=== PATIENT | male | born 1970 | race Caucasian/White ===

== ENCOUNTER 2017-08-03 13:49 | Observation (INO) | payer MEDICAID ==
[2017-08-03] MEDS ORDERED: Sodium Chloride 0.9% 10 ML Syringe FLUSH PRN (14:03)
--- NOTE | 2017-08-03 14:17 | EDM.PDOC ---
ED HPI GENERAL MEDICAL PROBLEM - General Chief Complaint: General Stated Complaint: WEAK,NOT FEELING WELL Time Seen by Provider: 08/03/17 13:49 Source of Information: Reports: Patient History Limitations: Reports: No Limitations - History of Present Illness INITIAL COMMENTS - FREE TEXT/NARRATIVE: Pt. states that he has been experiencing dyspnea, lightheadedness, weakness, and RUQ abdominal pain for "a couple of days". Pt. states that he has not had any significant cough. He states that his urine in noted to be quite concentrated. He denies any N/V/D. States that he has been somewhat chilled. He denies any sore throat or rhinorrhea. No skin rashes or erythema. He states that he feels similar to how he felt while having pneumonia several years ago. Onset: Other (several days) Headache Pain Score (Numeric/FACES): 4 - Related Data Allergies Allergy/AdvReac Type Severity Reaction Status Date / Time No Known Allergies Allergy Verified 08/03/17 14:13 Home Meds: Home Meds FLUoxetine [PROzac] 40 mg PO DAILY 08/03/17 [History] Lisinopril [Lisinopril] 10 mg PO DAILY 08/03/17 [History] Pramipexole [Mirapex] 0.125 mg PO BEDTIME 08/03/17 [History] Past Medical History Gastrointestinal History: Reports: Other (See Below) (gastric bypass) ED ROS GENERAL - Review of Systems Review Of Systems: See Below Constitutional: Reports: Fever, Chills, Weakness, Fatigue HEENT: Reports: No Symptoms Respiratory: Reports: Shortness of Breath Cardiovascular: Reports: Dyspnea on Exertion, Orthopnea, PND, Other (peripheral edema) Endocrine: Reports: Other GI/Abdominal: Reports: Abdominal Pain (RUQ) : Reports: Other (concentrated urine) Musculoskeletal: Reports: No Symptoms Skin: Reports: Dryness Neurological: Reports: No Symptoms Psychiatric: Reports: No Symptoms Hematologic/Lymphatic: Reports: No Symptoms Immunologic: Reports: No Symptoms ED EXAM, GENERAL - Physical Exam Exam: See Below Exam Limited By: No Limitations General Appearance: Alert, WD/WN, Mild Distress, Obese Eye Exam: Bilateral Eye: EOMI, Normal Inspection, PERRL Ears: Normal External Exam Nose: Normal Inspection, Normal Mucosa, No Blood Throat/Mouth: Normal Inspection, Normal Lips, Normal Teeth, Normal Gums, Normal Oropharynx, No Airway Compromise Head: Atraumatic, Normocephalic Neck: Normal Inspection, Supple, Non-Tender Respiratory/Chest: No Respiratory Distress, No Accessory Muscle Use, Decreased Breath Sounds Cardiovascular: Normal Peripheral Pulses, Regular Rate, Rhythm, No JVD, No Murmur Peripheral Pulses: 2+: Radial (L), Radial (R) GI/Abdominal: Normal Bowel Sounds, Soft, Non-Tender Back Exam: Normal Inspection Course - Vital Signs Last Recorded V/S: Last Vital Signs Temp 37.9 C 08/03/17 17:27 Pulse 97 08/03/17 17:27 Resp 24 H 08/03/17 17:27 BP 157/88 H 08/03/17 17:27 Pulse Ox 95 08/03/17 17:27 - Orders/Labs/Meds Orders: Active Orders 24 hr Category Date Time Status EKG Documentation Completion [RC] STAT Care 08/03/17 14:04 Ordered Chest 2V [CR] Stat Exams 08/03/17 14:04 Taken CULTURE BLOOD [BC] Stat Lab 08/03/17 14:31 Received CULTURE BLOOD [BC] Stat Lab 08/03/17 14:37 Received Sodium Chloride 0.9% [Saline Flush] Med 08/03/17 14:03 Active 10 ml FLUSH ASDIRECTED PRN Blood Culture x2 Reflex Set [OM.PC] Stat Oth 08/03/17 14:05 Ordered Peripheral IV Insertion Adult [OM.PC] Routine Oth 08/03/17 14:05 Ordered Medication Orders Ceftriaxone Sodium (Rocephin) 2 gm IVPUSH DAILY@1500 [facility] Enoxaparin Sodium (Lovenox) 40 mg SUBCUT Q12HR [facility] Fluoxetine HCl (Prozac) 40 mg PO DAILY [facility] Azithromycin 500 mg/ Sodium (Chloride) 250 mls @ 250 mls/hr IV DAILY@1500 [facility] Potassium Chloride/Sodium Chloride (1/2 Ns With 20 Meq Kcl) 1,000 mls @ 150 mls /hr IV ASDIRECTED [facility] Sodium Chloride (Normal Saline) 1,000 mls @ 500 mls/hr IV ASDIRECTED [facility] Stop: 08/03/17 22:44 Lisinopril (Prinivil) 10 mg PO DAILY [facility] Ropinirole HCl (Requip) 0.25 mg PO BEDTIME [facility] Sodium Chloride (Saline Flush) 10 ml FLUSH ASDIRECTED PRN PRN Reason: Keep Vein Open Labs: Laboratory Tests 08/03/17 08/03/17 08/03/17 Range/Units 14:25 14:31 14:31 WBC 15.2 H (4.0-10.0) x10^3/uL RBC 4.95 (4.5-6.0) x10^6/uL Hgb 11.2 L (14.0-18.0) g/dL Hct 36.1 L (40.0-52.0) % MCV 72.9 L (78.0-93.0) fL MCH 22.6 L (26.0-32.0) pg MCHC 31.0 L (32.0-36.0) g/dL RDW Coeff of Merary 17.5 H (10.0-15.0) % Plt Count 242 (130-400) x10^3/uL Add Manual Diff Yes Neutrophils % (Manual) 77 (50-80) % Band Neutrophils % 18 H (0-6) % Lymphocytes % (Manual) 2 L (25-50) % Monocytes % (Manual) 1 L (2-11) % Metamyelocytes % 2 H (0) % Toxic Granulation 2+ moderate H Platelet Estimate Adequate Polychromasia Rare Poikilocytosis 1+ slight H Anisocytosis 3+ marked H Microcytosis 1+ slight H Spherocytes 1+ slight H Ovalocytes 2+ moderate H Sanjeev Cells 1+ slight H Acanthocytes (Spur) Rare Rouleaux 1+ slight H PT 11.0 (9.8-11.8) SEC INR 1.0 L (2.0-3.5) D-Dimer, Quantitative 4.71 H (<=0.58) mg/LFEU Sodium (136-145) mmol/L Potassium (3.5-5.1) mmol/L Chloride (98-107) mmol/L Carbon Dioxide (21-32) mmol/L BUN (7-18) mg/dL Creatinine (0.70-1.30) mg/dL Est Cr Clr Drug Dosing mL/min Estimated GFR (MDRD) Glucose (74-106) mg/dL Lactic Acid (0.4-2.0) mmol/L Calcium (8.5-10.1) mg/dL Corrected Calcium (8.5-10.1) mg/dL Phosphorus (2.6-4.7) mg/dL Magnesium (1.8-2.4) mg/dL Total Bilirubin (0.2-1.0) mg/dL AST (15-37) U/L ALT (16-63) U/L Alkaline Phosphatase (46-116) U/L Creatine Kinase (39-308) U/L Creatine Kinase Index (0.0-4.0) % CK-MB (CK-2) (0.0-3.6) ng/mL Troponin I (<=0.056) ng/mL C-Reactive Protein (<=0.9) mg/dL NT-Pro-B Natriuret Pep (<=125) pg/mL Total Protein (6.4-8.2) g/dL Albumin (3.4-5.0) g/dL Globulin Albumin/Globulin Ratio Urine Color Shu H (YELLOW) Urine Appearance Slightly cloudy H (CLEAR) Urine pH 6.0 (5.0-8.0) Ur Specific [place] >=1.030 Urine Protein 100 H (NEGATIVE) mg/dL Urine Glucose (UA) Negative (NEGATIVE) mg/dL Urine Ketones Negative (NEGATIVE) mg/dL Urine Occult Blood Negative (NEGATIVE) Urine Nitrite Negative (NEGATIVE) Urine Bilirubin Small H (NEGATIVE) Urine Urobilinogen 2.0 H (0.2) EU/dL Ur Leukocyte Esterase Trace H (NEGATIVE) Urine RBC 0-5 (NOT SEEN) /HPF Urine WBC 5-10 H (NOT SEEN) /HPF Ur Squamous Epith Cells Moderate H (NEGATIVE) /HPF Amorphous Sediment Few Urine Bacteria Not seen (NEGATIVE) /HPF Urine Mucus Many H (NEGATIVE) /LPF 08/03/17 08/03/17 Range/Units 14:31 14:31 WBC (4.0-10.0) x10^3/uL RBC (4.5-6.0) x10^6/uL Hgb (14.0-18.0) g/dL Hct (40.0-52.0) % MCV (78.0-93.0) fL MCH (26.0-32.0) pg MCHC (32.0-36.0) g/dL RDW Coeff of Merary (10.0-15.0) % Plt Count (130-400) x10^3/uL Add Manual Diff Neutrophils % (Manual) (50-80) % Band Neutrophils % (0-6) % Lymphocytes % (Manual) (25-50) % Monocytes % (Manual) (2-11) % Metamyelocytes % (0) % Toxic Granulation Platelet Estimate Polychromasia Poikilocytosis Anisocytosis Microcytosis Spherocytes Ovalocytes Sanjeev Cells Acanthocytes (Spur) Rouleaux PT (9.8-11.8) SEC INR (2.0-3.5) D-Dimer, Quantitative (<=0.58) mg/LFEU Sodium 140 (136-145) mmol/L Potassium 3.5 (3.5-5.1) mmol/L Chloride 104 (98-107) mmol/L Carbon Dioxide 24 (21-32) mmol/L BUN 18 (7-18) mg/dL Creatinine 1.1 (0.70-1.30) mg/dL Est Cr Clr Drug Dosing 98.60 mL/min Estimated GFR (MDRD) > 60 Glucose 128 H (74-106) mg/dL Lactic Acid 2.4 H (0.4-2.0) mmol/L Calcium 8.4 L (8.5-10.1) mg/dL Corrected Calcium 9.20 (8.5-10.1) mg/dL Phosphorus 2.7 (2.6-4.7) mg/dL Magnesium 1.6 L (1.8-2.4) mg/dL Total Bilirubin 1.1 H (0.2-1.0) mg/dL AST 32 (15-37) U/L ALT 36 (16-63) U/L Alkaline Phosphatase 144 H (46-116) U/L Creatine Kinase 139 (39-308) U/L Creatine Kinase Index < 0.4 (0.0-4.0) % CK-MB (CK-2) < 0.5 (0.0-3.6) ng/mL Troponin I < 0.017 (<=0.056) ng/mL C-Reactive Protein 11.4 H (<=0.9) mg/dL NT-Pro-B Natriuret Pep 460 H (<=125) pg/mL Total Protein 7.3 (6.4-8.2) g/dL Albumin 3.0 L (3.4-5.0) g/dL Globulin 4.3 Albumin/Globulin Ratio 0.70 Urine Color (YELLOW) Urine Appearance (CLEAR) Urine pH (5.0-8.0) Ur Specific [place] Urine Protein (NEGATIVE) mg/dL Urine Glucose (UA) (NEGATIVE) mg/dL Urine Ketones (NEGATIVE) mg/dL Urine Occult Blood (NEGATIVE) Urine Nitrite (NEGATIVE) Urine Bilirubin (NEGATIVE) Urine Urobilinogen (0.2) EU/dL Ur Leukocyte Esterase (NEGATIVE) Urine RBC (NOT SEEN) /HPF Urine WBC (NOT SEEN) /HPF Ur Squamous Epith Cells (NEGATIVE) /HPF Amorphous Sediment Urine Bacteria (NEGATIVE) /HPF Urine Mucus (NEGATIVE) /LPF Meds: Medications Generic Name Dose Route Start Last Admin Trade Name Freq PRN Reason Stop Dose Admin Ceftriaxone Sodium 2 gm 08/04/17 15:00 Rocephin IVPUSH DAILY@1500 [facility] Enoxaparin Sodium 40 mg 08/03/17 20:00 Lovenox SUBCUT Q12HR [facility] Fluoxetine HCl 40 mg 08/04/17 08:00 Prozac PO DAILY [facility] Azithromycin 500 mg/ Sodium 250 mls @ 250 mls/hr 08/04/17 15:00 Chloride IV DAILY@1500 [facility] Potassium Chloride/Sodium Chloride 1,000 mls @ 150 mls/hr 08/03/17 18:15 1/2 Ns With 20 Meq Kcl IV ASDIRECTED [facility] Sodium Chloride 1,000 mls @ 500 mls/hr 08/03/17 18:45 Normal Saline IV 08/03/17 22:44 ASDIRECTED [facility] Lisinopril 10 mg 08/04/17 08:00 Prinivil PO DAILY [facility] Ropinirole HCl 0.25 mg 08/03/17 20:00 Requip PO BEDTIME [facility] Sodium Chloride 10 ml 08/03/17 14:03 Saline Flush FLUSH ASDIRECTED PRN Keep Vein Open Discontinued Medications Generic Name Dose Route Start Last Admin Trade Name Freq PRN Reason Stop Dose Admin Ceftriaxone Sodium 2 gm 08/03/17 15:04 08/03/17 15:13 Rocephin IVPUSH 08/03/17 15:05 2 gm ONETIME ONE Administration Enoxaparin Sodium 40 mg 08/03/17 18:30 Lovenox SUBCUT Q12HR [facility] Azithromycin 500 mg/ Sodium 250 mls @ 250 mls/hr 08/03/17 15:04 08/03/17 15: 16 Chloride IV 08/03/17 16:03 250 mls/hr ONETIME ONE Administration Sodium Chloride 1,000 mls @ 1,000 mls/hr 08/03/17 15:08 08/03/17 15:11 Normal Saline IV 08/03/17 16:07 1,000 mls/hr .BOLUS ONE Administration Sodium Chloride 100 mls @ 3 mls/sec 08/03/17 17:18 Normal Saline IV 08/03/17 17:19 ONETIME ONE Sodium Chloride 500 mls @ 500 mls/hr 08/03/17 18:08 08/03/17 18:25 Normal Saline IV 08/03/17 19:07 500 mls/hr ONETIME ONE Administration Iopamidol 100 ml 08/03/17 17:18 Isovue-300 (61%) IVPUSH 08/03/17 17:19 ONETIME ONE - Radiology Interpretation Free Text/Narrative:: chest x-ray reveals intermittent atelectasis but no area of large infiltrate. - Re-Assessments/Exams Free Text/Narrative Re-Assessment/Exam: 08/03/17 15:57 Pt. given 2 grams of rocephin and and 500mg azithromycin. Was given 1000ml NS bolus. Departure - Departure Time of Disposition: 15:50 Disposition: Admitted As Inpatient 68 Condition: Fair Clinical Impression: Pneumonia - Discharge Information - Problem List & Annotations (1) Pneumonia SNOMED Code(s): 414845258 Code(s): J18.9 - PNEUMONIA, UNSPECIFIED ORGANISM Status: Acute Current Visit: Yes - My Orders Last 24 Hours: My Active Orders 08/03/17 14:03 Sodium Chloride 0.9% [Saline Flush] 10 ml FLUSH ASDIRECTED PRN 08/03/17 14:04 EKG Documentation Completion [RC] STAT Chest 2V [CR] Stat 08/03/17 14:05 Blood Culture x2 Reflex Set [OM.PC] Stat Peripheral IV Insertion Adult [OM.PC] Routine 08/03/17 14:31 CULTURE BLOOD [BC] Stat 08/03/17 14:37 CULTURE BLOOD [BC] Stat - Assessment/Plan Last 24 Hours: My Active Orders 08/03/17 14:03 Sodium Chloride 0.9% [Saline Flush] 10 ml FLUSH ASDIRECTED PRN 08/03/17 14:04 EKG Documentation Completion [RC] STAT Chest 2V [CR] Stat 08/03/17 14:05 Blood Culture x2 Reflex Set [OM.PC] Stat Peripheral IV Insertion Adult [OM.PC] Routine 08/03/17 14:31 CULTURE BLOOD [BC] Stat 08/03/17 14:37 CULTURE BLOOD [BC] Stat Assessment:: Community acquired pneumonia Plan: Pt. will be admitted observation. Rocephin 2 gm daily zithromax 500mg once daily Flutter valve and incentive spirometry. Lovenox 40mg twice daily for DVT prophylaxis
[2017-08-03] MEDS ORDERED: cefTRIAXone 2 GM Vial IVPUSH ONE (15:04)
[2017-08-03] MEDS ORDERED: Azithromycin 500 MG in Sodium Chloride 0.9% 250 ML IV ONE (15:04)
[2017-08-03] MEDS ORDERED: Sodium Chloride 0.9% 1,000 ML IV ONE (15:08)
[2017-08-03 15:14] LABS: CHLORIDE,CL 104 mmol/L (98-107); SODIUM,NA 140 mmol/L (136-145)
[2017-08-03] MEDS ORDERED: Sodium Chloride 0.9% 100 ML IV ONE (17:18)
[2017-08-03] MEDS ORDERED: Iopamidol 612 MG/ML 100 ML Bottle IVPUSH ONE (17:18)
[2017-08-03] MEDS ORDERED: Sodium Chloride 0.9% 500 ML IV ONE (18:08)
[2017-08-03] MEDS ORDERED: Enoxaparin 40 MG/0.4 ML Syringe SUBCUT SCH (18:30)
[2017-08-03] MEDS ORDERED: Sodium Chloride 0.9% 1,000 ML IV SCH (18:45)
[2017-08-03] MEDS ORDERED: rOPINIRole 0.5 MG Tab PO SCH ×3 (20:00→21:15)
[2017-08-03] MEDS: Enoxaparin 40 MG/0.4 ML Syringe SUBCUT SCH (20:36)
[2017-08-03] MEDS: Sodium Chloride 0.45% with KCl 1,000 ML IV SCH (22:29)
[2017-08-04] MEDS: Sodium Chloride 0.45% with KCl 1,000 ML IV SCH ×2 (05:30→14:25)
[2017-08-04] MEDS ORDERED: Ibuprofen 200 MG Tab PO PRN (05:42)
[2017-08-04 07:45] LABS: CHLORIDE,CL 106 mmol/L (98-107); SODIUM,NA 139 mmol/L (136-145)
[2017-08-04] MEDS: Enoxaparin 40 MG/0.4 ML Syringe SUBCUT SCH (07:52)
[2017-08-04] MEDS ORDERED: FLUoxetine 10 MG Cap PO SCH (08:00)
[2017-08-04] MEDS ORDERED: Lisinopril 10 MG Tab PO SCH (08:00)
[2017-08-04] MEDS ORDERED: Iopamidol 612 MG/ML 100 ML Bottle IVPUSH ONE (12:45)
[2017-08-04] MEDS ORDERED: Sodium Chloride 0.9% 100 ML IV ONE (12:45)
[2017-08-04 13:55] VITALS: BP 123/73
[2017-08-04] MEDS ORDERED: Piperacillin/Tazobactam 4.5 GM in Sodium Chloride 0.9% 100 ML IV ONE (14:27)
--- NOTE | 2017-08-04 14:43 | PCM.DCSUM1 ---
Discharge Summary - Hospital Course Free Text/Narrative:: Pt. was admitted on 08/03/17 with sepsis, dehydration, and weakness. Pt. met sepsis criteria and had extensive work-up, including lactic acid, blood cultures x 2, CT angiogram of the chest for + d dimer. Pt. showed evidence of atelectasis in bases of both lungs but no infiltrate. His urine was positive for trace of leukocytes, and his rapid strep and influenza were negative. Pt. was started on IV rocephin and azithromycin. He was rehydrated overnight (4 liters total of normal saline) and stated he felt much improved today. Throughout the day, his blood cultures have come positive (01/28 at time of transfer). He has grown gram + cocci in chains. CT of the pts. abdomen and pelvis with IV contrast was obtained this afternoon. Pt. was found to have evidence of complete loss of disc height, thought to be potentially secondary to discitis/osteomyelitis. To note, pt. did not have any nuchal rigidity and his neuro exam was negative. On further questioning, he states that he has chronic low back pain as well as new onset neck pain and continued headache. - Discharge Data Discharge Date: 08/04/17 Discharge Disposition: DC/Tfer to Acute Hospital 02 Condition: Serious - Discharge Diagnosis/Problem(s) (1) Pneumonia SNOMED Code(s): 358630762 ICD Code: J18.9 - PNEUMONIA, UNSPECIFIED ORGANISM Status: Acute Current Visit: Yes - Patient Summary/Data Recommended Follow-up Testing/Procedures: Transfer to [facility] in [place]-accepting physician is Dr. Workman. Pt. will be transported via ground ambulance. Hospital Course: Azithromycin and rocephin will be discontinued. Pt. was started on IV zosyn 4.5mg and vancomycin 1,750mg IV. Will continue with 1/2 NS with 20 KCL at 150/ hr. - Patient Instructions Diet: NPO - Discharge Plan Home Medications: Home Meds FLUoxetine [PROzac] 40 mg PO DAILY 08/03/17 [History] Lisinopril [Lisinopril] 10 mg PO DAILY 08/03/17 [History] Pramipexole [Mirapex] 0.125 mg PO BEDTIME 08/03/17 [History] Forms: ED Department Discharge, Interfacility Transfer EMTALA Referrals: Hugo Bates MD [Primary Care Provider] - - General Info Date of Service: 08/04/17 Admission Dx/Problem (Free Text: Pt. was admitted on 08/03/17 with sepsis, dehydration, and weakness. Pt. met sepsis criteria and had extensive work-up, including lactic acid, blood cultures x 2, CT angiogram of the chest for + d dimer. Pt. showed evidence of atelectasis in bases of both lungs but no infiltrate. His urine was positive for trace of leukocytes, and his rapid strep and influenza were negative. Pt. was started on IV rocephin and azithromycin. He was rehydrated overnight (4 liters total of normal saline) and stated he felt much improved today. Throughout the day, his blood cultures have come positive (01/28 at time of transfer). He has grown gram + cocci in chains. CT of the pts. abdomen and pelvis with IV contrast was obtained this afternoon. Pt. was found to have evidence of complete loss of disc height, thought to be potentially secondary to discitis/osteomyelitis. To note, pt. did not have any nuchal rigidity and his neuro exam was negative. On further questioning, he states that he has chronic low back pain as well as new onset neck pain and continued headache. Subjective Update: Pt. reports feeling much better. He denies any chest pain or shortness of breath. States that he feels less lightheaded and weak. - Review of Systems General: Reports: Fever, Weakness, Fatigue HEENT: Reports: No Symptoms Pulmonary: Reports: No Symptoms Cardiovascular: Reports: No Symptoms Gastrointestinal: Reports: No Symptoms Genitourinary: Reports: No Symptoms Musculoskeletal: Reports: Neck Pain, Back Pain Skin: Reports: No Symptoms Neurological: Reports: Dizziness, Weakness Psychiatric: Reports: No Symptoms - Patient Data Vitals - Most Recent: Last Vital Signs Temp 35.9 C 08/04/17 13:53 Pulse 71 08/04/17 13:53 Resp 20 08/04/17 13:53 BP 123/73 08/04/17 13:53 Pulse Ox 95 08/04/17 13:53 Weight - Most Recent: 207.745 kg I&O - Last 24 hours: Intake & Output 08/03/17 08/04/17 08/04/17 22:59 06:59 14:59 Intake Total 3250 958 1290 Output Total 400 550 200 Balance 2850 408 1090 Lab Results - Last 24 hrs: Laboratory Results - last 24 hr 08/03/17 08/03/17 08/04/17 Range/Units 21:57 21:57 07:12 WBC 8.7 (4.0-10.0) x10^3/uL RBC 4.23 L (4.5-6.0) x10^6/uL Hgb 9.6 L D (14.0-18.0) g/dL Hct 31.3 L (40.0-52.0) % MCV 74.0 L (78.0-93.0) fL MCH 22.7 L (26.0-32.0) pg MCHC 30.7 L (32.0-36.0) g/dL RDW Coeff of Merary 17.5 H (10.0-15.0) % Plt Count 207 (130-400) x10^3/uL Sodium (136-145) mmol/L Potassium (3.5-5.1) mmol/L Chloride (98-107) mmol/L Carbon Dioxide (21-32) mmol/L BUN (7-18) mg/dL Creatinine (0.70-1.30) mg/dL Est Cr Clr Drug Dosing mL/min Estimated GFR (MDRD) Glucose (74-106) mg/dL Lactic Acid 1.0 (0.4-2.0) mmol/L Calcium (8.5-10.1) mg/dL Corrected Calcium (8.5-10.1) mg/dL Total Bilirubin (0.2-1.0) mg/dL AST (15-37) U/L ALT (16-63) U/L Alkaline Phosphatase (46-116) U/L Troponin I < 0.017 (<=0.056) ng/mL Total Protein (6.4-8.2) g/dL Albumin (3.4-5.0) g/dL Globulin Albumin/Globulin Ratio 08/04/17 08/04/17 Range/Units 07:12 07:12 WBC (4.0-10.0) x10^3/uL RBC (4.5-6.0) x10^6/uL Hgb (14.0-18.0) g/dL Hct (40.0-52.0) % MCV (78.0-93.0) fL MCH (26.0-32.0) pg MCHC (32.0-36.0) g/dL RDW Coeff of Merary (10.0-15.0) % Plt Count (130-400) x10^3/uL Sodium 139 (136-145) mmol/L Potassium 3.4 L (3.5-5.1) mmol/L Chloride 106 (98-107) mmol/L Carbon Dioxide 25 (21-32) mmol/L BUN 15 (7-18) mg/dL Creatinine 0.8 (0.70-1.30) mg/dL Est Cr Clr Drug Dosing 135.57 mL/min Estimated GFR (MDRD) > 60 Glucose 114 H (74-106) mg/dL Lactic Acid 1.1 (0.4-2.0) mmol/L Calcium 8.2 L (8.5-10.1) mg/dL Corrected Calcium 9.40 (8.5-10.1) mg/dL Total Bilirubin 1.0 (0.2-1.0) mg/dL AST 30 (15-37) U/L ALT 33 (16-63) U/L Alkaline Phosphatase 113 (46-116) U/L Troponin I < 0.017 (<=0.056) ng/mL Total Protein 6.2 L (6.4-8.2) g/dL Albumin 2.5 L (3.4-5.0) g/dL Globulin 3.7 Albumin/Globulin Ratio 0.68 AURELIA Results - Last 24 hrs: Microbiology 08/04/17 11:30 Group A Streptococcus Rapid Screen - Final Throat NEGATIVE STREP A SCREEN Med Orders - Current: Current Medications Enoxaparin Sodium (Lovenox) 40 mg SUBCUT Q12HR [facility] Last Admin: 08/04/17 07:52 Dose: 40 mg Fluoxetine HCl (Prozac) 40 mg PO DAILY [facility] Last Admin: 08/04/17 07:51 Dose: 40 mg Potassium Chloride/Sodium Chloride (1/2 Ns With 20 Meq Kcl) 1,000 mls @ 150 mls /hr IV ASDIRECTED [facility] Last Admin: 08/04/17 14:25 Dose: 150 mls/hr Vancomycin HCl 1,750 mg/ (Sodium Chloride) 250 mls @ 143 mls/hr IV ONETIME ONE Stop: 08/04/17 16:07 Piperacillin Sod/Tazobactam (Sod 4.5 gm/ Sodium Chloride) 100 mls @ 200 mls/hr IV ONETIME ONE Stop: 08/04/17 14:56 Ibuprofen (Motrin) 400 mg PO Q4H PRN PRN Reason: Pain/Fever Last Admin: 08/04/17 05:50 Dose: 400 mg Lisinopril (Prinivil) 10 mg PO DAILY [facility] Last Admin: 08/04/17 07:51 Dose: 10 mg Ropinirole HCl (Requip) 0.5 mg PO BEDTIME [facility] Last Admin: 08/03/17 21:11 Dose: 0.5 mg Sodium Chloride (Saline Flush) 10 ml FLUSH ASDIRECTED PRN PRN Reason: Keep Vein Open Discontinued Medications Ceftriaxone Sodium (Rocephin) 2 gm IVPUSH ONETIME ONE Stop: 08/03/17 15:05 Last Admin: 08/03/17 15:13 Dose: 2 gm Ceftriaxone Sodium (Rocephin) 2 gm IVPUSH DAILY@1500 [facility] Enoxaparin Sodium (Lovenox) 40 mg SUBCUT Q12HR [facility] Azithromycin 500 mg/ Sodium (Chloride) 250 mls @ 250 mls/hr IV ONETIME ONE Stop: 08/03/17 16:03 Last Admin: 08/03/17 15:16 Dose: 250 mls/hr Sodium Chloride (Normal Saline) 1,000 mls @ 1,000 mls/hr IV .BOLUS ONE Stop: 08/03/17 16:07 Last Admin: 08/03/17 15:11 Dose: 1,000 mls/hr Azithromycin 500 mg/ Sodium (Chloride) 250 mls @ 250 mls/hr IV DAILY@1500 [facility] Sodium Chloride (Normal Saline) 100 mls @ 3 mls/sec IV ONETIME ONE Stop: 08/03/17 17:19 Last Admin: 08/03/17 19:27 Dose: 3 mls/sec Sodium Chloride (Normal Saline) 500 mls @ 500 mls/hr IV ONETIME ONE Stop: 08/03/17 19:07 Last Admin: 08/03/17 18:25 Dose: 500 mls/hr Sodium Chloride (Normal Saline) 1,000 mls @ 500 mls/hr IV ASDIRECTED [facility] Stop: 08/03/17 22:44 Last Admin: 08/03/17 20:27 Dose: 500 mls/hr Sodium Chloride (Normal Saline) 100 mls @ 3 mls/sec IV ONETIME ONE Stop: 08/04/17 12:46 Last Admin: 08/04/17 13:15 Dose: 3 mls/sec Iopamidol (Isovue-300 (61%)) 100 ml IVPUSH ONETIME ONE Stop: 08/03/17 17:19 Last Admin: 08/03/17 19:27 Dose: 100 ml Iopamidol (Isovue-300 (61%)) 100 ml IVPUSH ONETIME ONE Stop: 08/04/17 12:46 Last Admin: 08/04/17 13:15 Dose: 100 ml Ropinirole HCl (Requip) 0.25 mg PO BEDTIME [facility] Last Admin: 08/03/17 21:12 Dose: Not Given Ropinirole HCl (Requip) 0.5 mg PO BEDTIME [facility] - Exam General: Reports: Alert, Oriented Neck: Reports: Supple Lungs: Reports: Clear to Auscultation, Normal Respiratory Effort, Decreased Breath Sounds Cardiovascular: Reports: Regular Rate, Regular Rhythm GI/Abdominal Exam: Normal Bowel Sounds, Soft, Non-Tender, No Organomegaly (Male) Exam: No Hernia, Normal Inspection Rectal (Males) Exam: Normal Exam Back Exam: Reports: Normal Inspection, Vertebral Tenderness Extremities: Normal Inspection, Normal Range of Motion Skin: Reports: Warm, Dry, Intact Wound/Incisions: Reports: Dressing Dry and Intact Neurological: Reports: No New Focal Deficit, Normal Gait, Normal Speech, Reflexes Equal Bilateral Psy/Mental Status: Reports: Alert, Normal Affect, Normal Mood EKG INTERPRETATION EKG Date: 08/03/17 Rhythm: NSR [place]: Normal *Q Meaningful Use (DIS) - VTE *Q VTE Criteria *Q: - Stroke *Q Stroke Criteria *Q: - AMI *Q AMI Criteria *Q:
[2017-08-04] MEDS ORDERED: Azithromycin 500 MG in Sodium Chloride 0.9% 250 ML IV SCH (15:00)
[2017-08-04] MEDS ORDERED: cefTRIAXone 2 GM Vial IVPUSH SCH (15:00)
== END 2017-08-04 16:30 | disposition short-term general hospital (02) ==
LOC: VM.ED 13:49 → VM.MS 15:30
PROVIDERS: ADMIT Physician Assistant; ATTEND Physician Assistant
DX: J18.9 Pneumonia, unspecified organism (principal); I10 Essential (primary) hypertension; F41.9 Anxiety disorder, unspecified; F32.9 Major depressive disorder, single episode, unspecified; Z79.899 Other long term (current) drug therapy; Z98.84 Bariatric surgery status; Z87.891 Personal history of nicotine dependence
CPT/HCPCS: 36415; 71020; 71275; 74177; 80053; 81001; 82550; 82553; 83605; 83735; 83880; 84100; 84484; 85025; 85027; 85379; 85610; 86140; 87040; 87077; 87081; 87086; 87804; 87880; 93005; 94760; 96365; 96375; 99285; A9270; J0456; J0696; J1650; J2543; J3370; J3480; J7030; J7040; J7050; Q9967; 87088; 87181; 87184; 87186; 96361; 96367; 96368; 96372; G0378

== ENCOUNTER 2023-03-31 13:58 | Inpatient (IN) | payer MEDICAID ==
[2023-03-31 14:31] LABS: HEMATOCRIT 46.4 % (40.0-52.0); HEMOGLOBIN 16.9 g/dL (14.0-18.0); MEAN CORPUSCULAR HEMOGLOBIN 29.3 pg (26.0-32.0); MEAN CORPUSCULAR HGB CONC 36.4 g/dL (32.0-36.0); MEAN CORPUSCULAR VOLUME 80.4 fL (78.0-93.0); PLATELET COUNT,PLT 124 x10^3/uL (130-400); RED BLOOD CELL COUNT 5.77 x10^6/uL (4.5-6.0)
[2023-03-31 14:39] LABS: WHITE BLOOD CELL COUNT,WBC 21.7 x10^3/uL (4.0-10.0)
[2023-03-31] MEDS ORDERED: Sodium Chloride 0.9% 1,000 ML IV ONE ×2 (14:48→15:10)
[2023-03-31 15:01] LABS: BAND PERCENT MAN 4 % (0-6); LYMPHOCYTES ABSOLUTE MAN 1.5 x10^3/uL (1.0-4.8); LYMPHOCYTES PERCENT MAN 7 % (25-50); MONOCYTES ABSOLUTE MAN 0.9 x10^3/uL (0.0-0.8); MONOCYTES PERCENT MAN 4 % (2-11); NEUTROPHILS ABSOLUTE MAN 19.3 x10^3/uL (1.8-7.7); SEG NEUTROPHILS PERCENT MAN 85 % (50-80)
[2023-03-31 15:02] LABS: A/G RATIO 0.57; ALANINE AMINOTRANSFERASE,ALT 56 U/L (16-63); ALBUMIN 2.8 g/dL (3.4-5.0); ALKALINE PHOSPHATASE 134 U/L (46-116); ASPARTATE AMNIOTRANSFERASE,AST 207 U/L (15-37); BILIRUBIN TOTAL 0.9 mg/dL (0.2-1.0); BLOOD UREA NITROGEN,BUN 68 mg/dL (7-18); CALCIUM 8.8 mg/dL (8.5-10.1); CARBON DIOXIDE,CO2 15 mmol/L (21-32); CREATININE 2.8 mg/dL (0.70-1.30); GIANT PLATELETS OCCASIONAL; GLUCOSE RANDOM 116 mg/dL (70-99); PLATELET COUNT ESTIMATE DECREASED; PROTEIN TOTAL,TP 7.7 g/dL (6.4-8.2)
[2023-03-31 15:08] LABS: CHLORIDE,CL 99 mmol/L (98-107); SODIUM,NA 133 mmol/L (136-145)
[2023-03-31 15:10] LABS: ANION GAP 21.9 mmol/L (5-15); ESTIMATED GFR 27 mL/min (>=60); POTASSIUM,K 2.9 mmol/L (3.5-5.1)
[2023-03-31 15:21] LABS: C-REACTIVE PROTEIN 40.9 mg/dL (<=0.9)
[2023-03-31] MEDS ORDERED: Potassium Chloride Riders 20 MEQ in Premix Bag 1 BAG IV ONE (15:22)
[2023-03-31] MEDS ORDERED: Potassium Chloride 10 MEQ Tab.ER PO ONE (15:25)
[2023-03-31] MEDS: ceFAZolin 1 GM Vial IVPUSH SCH ×2 (15:40→23:07)
[2023-03-31] MEDS: Sodium Chloride 0.9% 1,000 ML IV SCH ×2 (15:45→20:50)
[2023-03-31] MEDS ORDERED: Acetaminophen 325 MG Tab PO PRN ×2 (17:12→18:33)
[2023-03-31 17:36] LABS: CALCIUM 8.4 mg/dL (8.5-10.1); CREATININE 2.7 mg/dL (0.70-1.30); EST CRCL DRUG DOSING (CG) 36.99 mL/min; MAGNESIUM 2.3 mg/dL (1.8-2.4); POTASSIUM,K 3.3 mmol/L (3.5-5.1)
[2023-03-31 17:38] LABS: ANION GAP 20.3 mmol/L (5-15)
[2023-03-31] MEDS: Heparin Sodium 5,000 Units/ML Vial SUBCUT SCH (18:07)
[2023-03-31] MEDS ORDERED: Fluticasone Propionate Nasal Spray 9.9 ML BOTTLE NASBOTH PRN (18:33)
[2023-03-31] MEDS: busPIRone 5 MG Tab PO SCH (20:50)
[2023-03-31] MEDS: Cranberry 500 MG Cap PO SCH (20:50)
[2023-03-31] MEDS: Acetaminophen/HYDROcodone 325-5 MG Tab PO PRN (20:50)
[2023-03-31 21:54] LABS: APPEARANCE,URINE CLOUDY (CLEAR); BILIRUBIN,URINE SMALL (NEGATIVE); COLOR,URINE DARK YELLOW (YELLOW); GLUCOSE,URINE NEGATIVE (NEGATIVE); KETONES,URINE TRACE mg/dL (NEGATIVE); LEUKOCYTE ESTERASE,URINE NEGATIVE (NEGATIVE); NITRITE,URINE NEGATIVE (NEGATIVE); OCCULT BLOOD,URINE LARGE (NEGATIVE); PH,URINE 5.5 (5.0-8.0); PROTEIN,URINE 100 mg/dL (NEGATIVE); UROBILINOGEN,URINE 0.2 EU/dL (0.2)
[2023-03-31 22:16] LABS: BACTERIA,URINE RARE /HPF (NOT SEEN); GRANULAR CASTS,URINE FEW; MUCUS,URINE RARE /LPF (NOT SEEN); SQUAMOUS EPITHELIAL CELLS,UR OCCASIONAL /HPF (NOT SEEN); WBC,URINE 0-5 /HPF (NOT SEEN)
[2023-04-01] MEDS: Heparin Sodium 5,000 Units/ML Vial SUBCUT SCH ×3 (01:13→17:43)
[2023-04-01] MEDS: Acetaminophen/HYDROcodone 325-5 MG Tab PO PRN ×2 (02:48→17:44)
[2023-04-01] MEDS: Sodium Chloride 0.9% 1,000 ML IV SCH ×2 (06:32→15:47)
[2023-04-01 07:08] LABS: BASOPHILS PERCENT AUTO 0.2 % (0.2-1.2); EOSINOPHILS ABSOLUTE AUTO 0.1 x10^3/uL (0.0-0.5); EOSINOPHILS PERCENT AUTO 0.5 % (0.0-4.0); HEMATOCRIT 44.2 % (40.0-52.0); HEMOGLOBIN 15.4 g/dL (14.0-18.0); IMMATURE GRAN ABSOLUTE AUTO 0.18 x10^3/uL (0.00-0.07); LYMPHOCYTES ABSOLUTE AUTO 1.7 x10^3/uL (1.0-4.8); LYMPHOCYTES PERCENT AUTO 11.7 % (25.0-50.0); MEAN CORPUSCULAR HEMOGLOBIN 28.7 pg (26.0-32.0); MEAN CORPUSCULAR HGB CONC 34.8 g/dL (32.0-36.0); MEAN CORPUSCULAR VOLUME 82.5 fL (78.0-93.0); MONOCYTES ABSOLUTE AUTO 0.8 x10^3/uL (0.0-0.8); MONOCYTES PERCENT AUTO 5.5 % (2.0-11.0); NEUTROPHILS ABSOLUTE AUTO 11.4 x10^3/uL (1.8-7.7); NEUTROPHILS PERCENT AUTO 80.8 % (50.0-80.0); RED BLOOD CELL COUNT 5.36 x10^6/uL (4.5-6.0); WHITE BLOOD CELL COUNT,WBC 14.1 x10^3/uL (4.0-10.0)
[2023-04-01 07:19] LABS: PLATELET COUNT,PLT 127 x10^3/uL (130-400)
[2023-04-01 07:32] LABS: A/G RATIO 0.57; ALBUMIN 2.4 g/dL (3.4-5.0); BILIRUBIN TOTAL 0.5 mg/dL (0.2-1.0); CALCIUM 8.3 mg/dL (8.5-10.1); CREATININE 2.1 mg/dL (0.70-1.30); EST CRCL DRUG DOSING (CG) 47.56 mL/min; PROTEIN TOTAL,TP 6.6 g/dL (6.4-8.2)
[2023-04-01] MEDS: ceFAZolin 1 GM Vial IVPUSH SCH (08:03)
[2023-04-01] MEDS: Cyanocobalamin (Vitamin B12) 250 MCG Tab PO SCH (08:03)
[2023-04-01] MEDS: Cranberry 500 MG Cap PO SCH ×3 (08:04→20:17)
[2023-04-01] MEDS: busPIRone 5 MG Tab PO SCH ×2 (08:04→20:18)
[2023-04-01] MEDS: Cholecalciferol (Vitamin D3) 25 MCG Tab PO SCH (08:04)
[2023-04-01] MEDS: DULoxetine 30 MG Cap PO SCH (08:04)
[2023-04-01] MEDS: buPROPion 150 MG Tab.ER PO SCH (08:04)
[2023-04-01] MEDS: Potassium Chloride 10 MEQ Tab.ER PO SCH ×2 (09:51→17:44)
[2023-04-01] MEDS: amLODIPine 2.5 MG Tab PO SCH (09:54)
[2023-04-01] MEDS ORDERED: Ergocalciferol (Vitamin D2) 1.25 MG Cap PO SCH (11:00)
[2023-04-01] MEDS ORDERED: VANCOmycin 1.25 GM/250 ML 1.25 GM in Premix Bag 1 BAG IV SCH (11:30)
[2023-04-01] MEDS: Ertapenem 1 GM Vial IVPUSH SCH (11:50)
[2023-04-01] MEDS: Clindamycin Phosphate in D5W 600 MG in Premix Bag 1 BAG IV SCH ×4 (12:55→20:18)
[2023-04-02] MEDS: Sodium Chloride 0.9% 1,000 ML IV SCH
[2023-04-02] MEDS: Acetaminophen/HYDROcodone 325-5 MG Tab PO PRN ×3 (00:17→23:49)
[2023-04-02] MEDS: Heparin Sodium 5,000 Units/ML Vial SUBCUT SCH ×3 (01:09→18:12)
[2023-04-02] MEDS: Clindamycin Phosphate in D5W 600 MG in Premix Bag 1 BAG IV SCH ×6 (04:50→20:43)
[2023-04-02 07:11] LABS: HEMATOCRIT 41.1 % (40.0-52.0); HEMOGLOBIN 13.8 g/dL (14.0-18.0); MEAN CORPUSCULAR HEMOGLOBIN 28.2 pg (26.0-32.0); MEAN CORPUSCULAR HGB CONC 33.6 g/dL (32.0-36.0); PLATELET COUNT,PLT 169 x10^3/uL (130-400); RED BLOOD CELL COUNT 4.89 x10^6/uL (4.5-6.0); WHITE BLOOD CELL COUNT,WBC 11.7 x10^3/uL (4.0-10.0)
[2023-04-02 07:30] LABS: BAND PERCENT MAN 3 % (0-6); EOSINOPHILS ABSOLUTE MAN 0.2 x10^3/uL (0.0-0.5); EOSINOPHILS PERCENT MAN 2 % (0-4); LYMPHOCYTES ABSOLUTE MAN 1.9 x10^3/uL (1.0-4.8); LYMPHOCYTES PERCENT MAN 16 % (25-50); METAMYELOCYTE PERCENT MAN 3 % (0); MONOCYTES ABSOLUTE MAN 0.9 x10^3/uL (0.0-0.8); MONOCYTES PERCENT MAN 8 % (2-11); MYELOCYTE PERCENT MAN 2 % (0); NEUTROPHILS ABSOLUTE MAN 8.1 x10^3/uL (1.8-7.7); SEG NEUTROPHILS PERCENT MAN 66 % (50-80)
[2023-04-02 07:31] LABS: PLATELET COUNT ESTIMATE ADEQUATE
[2023-04-02 07:32] LABS: CALCIUM 8.2 mg/dL (8.5-10.1); CREATININE 1.3 mg/dL (0.70-1.30); EST CRCL DRUG DOSING (CG) 76.83 mL/min; POTASSIUM,K 3.2 mmol/L (3.5-5.1); VANCOMYCIN RANDOM 9.1 ug/mL (5.0-10.0)
[2023-04-02 07:34] LABS: ANION GAP 15.2 mmol/L (5-15)
[2023-04-02] MEDS: Cranberry 500 MG Cap PO SCH ×3 (09:23→20:42)
[2023-04-02] MEDS: busPIRone 5 MG Tab PO SCH ×2 (09:24→20:42)
[2023-04-02] MEDS: Cyanocobalamin (Vitamin B12) 250 MCG Tab PO SCH (09:24)
[2023-04-02] MEDS: buPROPion 150 MG Tab.ER PO SCH (09:24)
[2023-04-02] MEDS: DULoxetine 30 MG Cap PO SCH (09:24)
[2023-04-02] MEDS: amLODIPine 2.5 MG Tab PO SCH (09:25)
[2023-04-02] MEDS: Cholecalciferol (Vitamin D3) 25 MCG Tab PO SCH (09:25)
[2023-04-02] MEDS: Ertapenem 1 GM Vial IVPUSH SCH (09:26)
[2023-04-02] MEDS: Potassium Chloride 10 MEQ Tab.ER PO SCH ×2 (09:29→18:12)
[2023-04-02] MEDS ORDERED: VANCOmycin 2 GM/400 ML 2 GM in Premix Bag 1 BAG IV SCH (11:00)
[2023-04-02] MEDS: diphenhydrAMINE 25 MG Cap PO PRN (20:42)
[2023-04-03] MEDS: Heparin Sodium 5,000 Units/ML Vial SUBCUT SCH ×3 (02:26→18:04)
[2023-04-03] MEDS: Clindamycin Phosphate in D5W 600 MG in Premix Bag 1 BAG IV SCH ×2 (05:46)
[2023-04-03 07:04] LABS: HEMATOCRIT 41.7 % (40.0-52.0); MEAN CORPUSCULAR HEMOGLOBIN 28.8 pg (26.0-32.0); MEAN CORPUSCULAR HGB CONC 33.6 g/dL (32.0-36.0); MEAN CORPUSCULAR VOLUME 85.8 fL (78.0-93.0); PLATELET COUNT,PLT 243 x10^3/uL (130-400); RED BLOOD CELL COUNT 4.86 x10^6/uL (4.5-6.0); WHITE BLOOD CELL COUNT,WBC 12.5 x10^3/uL (4.0-10.0)
[2023-04-03 07:22] LABS: BAND PERCENT MAN 2 % (0-6); GIANT PLATELETS OCCASIONAL; LYMPHOCYTES ABSOLUTE MAN 2.8 x10^3/uL (1.0-4.8); LYMPHOCYTES PERCENT MAN 22 % (25-50); METAMYELOCYTE PERCENT MAN 2 % (0); MONOCYTES ABSOLUTE MAN 1.1 x10^3/uL (0.0-0.8); MONOCYTES PERCENT MAN 9 % (2-11); MYELOCYTE PERCENT MAN 2 % (0); NEUTROPHILS ABSOLUTE MAN 8.1 x10^3/uL (1.8-7.7); NRBC MANUAL 1 /100WBC (0-5); PLATELET COUNT ESTIMATE ADEQUATE; SEG NEUTROPHILS PERCENT MAN 63 % (50-80)
[2023-04-03 07:54] LABS: CALCIUM 8.5 mg/dL (8.5-10.1); CREATININE 1.2 mg/dL (0.70-1.30); EST CRCL DRUG DOSING (CG) 83.23 mL/min
[2023-04-03] MEDS: Potassium Chloride 10 MEQ Tab.ER PO SCH ×2 (08:22→17:31)
[2023-04-03] MEDS: Ertapenem 1 GM Vial IVPUSH SCH (08:22)
[2023-04-03] MEDS: Cholecalciferol (Vitamin D3) 25 MCG Tab PO SCH (08:22)
[2023-04-03] MEDS: amLODIPine 2.5 MG Tab PO SCH (08:23)
[2023-04-03] MEDS: Cranberry 500 MG Cap PO SCH ×3 (08:23→20:37)
[2023-04-03] MEDS: DULoxetine 30 MG Cap PO SCH (08:23)
[2023-04-03] MEDS: buPROPion 150 MG Tab.ER PO SCH (08:23)
[2023-04-03] MEDS: busPIRone 5 MG Tab PO SCH ×2 (08:23→20:37)
[2023-04-03] MEDS: Cyanocobalamin (Vitamin B12) 250 MCG Tab PO SCH (08:23)
[2023-04-03] MEDS: diphenhydrAMINE 25 MG Cap PO PRN ×2 (08:41→20:36)
[2023-04-03 09:21] LABS: ANION GAP 14.7 mmol/L (5-15); POTASSIUM,K 3.7 mmol/L (3.5-5.1)
[2023-04-03] MEDS: Cefuroxime 250 MG Tab PO SCH (20:36)
[2023-04-03] MEDS: Acetaminophen/HYDROcodone 325-5 MG Tab PO PRN (20:37)
[2023-04-04] MEDS: Heparin Sodium 5,000 Units/ML Vial SUBCUT SCH ×2 (01:15→09:05)
[2023-04-04] MEDS: Acetaminophen/HYDROcodone 325-5 MG Tab PO PRN ×2 (03:20→11:33)
[2023-04-04 08:57] VITALS: BP 147/77; PULSE 104
[2023-04-04] MEDS: Cholecalciferol (Vitamin D3) 25 MCG Tab PO SCH (08:57)
[2023-04-04] MEDS: Cranberry 500 MG Cap PO SCH ×2 (08:57→12:28)
[2023-04-04] MEDS: DULoxetine 30 MG Cap PO SCH (08:58)
[2023-04-04] MEDS: buPROPion 150 MG Tab.ER PO SCH (08:58)
[2023-04-04] MEDS: Cyanocobalamin (Vitamin B12) 250 MCG Tab PO SCH (08:58)
[2023-04-04] MEDS: Potassium Chloride 10 MEQ Tab.ER PO SCH (08:58)
[2023-04-04] MEDS: busPIRone 5 MG Tab PO SCH (08:58)
[2023-04-04] MEDS: Cefuroxime 250 MG Tab PO SCH (08:58)
[2023-04-04] MEDS: amLODIPine 2.5 MG Tab PO SCH (09:04)
== END 2023-04-04 12:35 | disposition home or self-care (01) | DRG 683 ==
LOC: VM.ED 13:58 → VM.MS 16:11
PROVIDERS: ADMIT Internal Medicine; ATTEND Internal Medicine
DX: N17.9 Acute kidney failure, unspecified (principal); L03.116 Cellulitis of left lower limb; M62.82 Rhabdomyolysis; Z68.43 Body mass index [BMI] 50.0-59.9, adult; E87.6 Hypokalemia; I10 Essential (primary) hypertension; E66.01 Morbid (severe) obesity due to excess calories; G47.33 Obstructive sleep apnea (adult) (pediatric); F32.A Depression, unspecified; D69.6 Thrombocytopenia, unspecified; Z98.84 Bariatric surgery status; Z79.899 Other long term (current) drug therapy; Z86.16 Personal history of COVID-19; Z98.890 Other specified postprocedural states; Z87.891 Personal history of nicotine dependence
CPT/HCPCS: 36415; 51798; 71046; 73700-LT; 80048; 80053; 80202; 81001; 82550; 83605; 83735; 84145; 85025; 85379; 86060; 86140; 87040; 93005; 96365; 96368; 97162-GP; 97164-GP; 97165-GO; 99284; 99285-25; A9270-GY; J0690; J1335; J1644; J3370; J3480; J3490; J7030; J7050

== ENCOUNTER 2024-01-08 15:19 | Inpatient (IN) | payer MEDICAID ==
[2024-01-08] MEDS ORDERED: Polyethylene Glycol 3350 Powder 17 GM Packet PO PRN (15:43)
[2024-01-08] MEDS ORDERED: Acetaminophen 325 MG Tab PO PRN (15:43)
[2024-01-08] MEDS ORDERED: Ondansetron 4 MG Tab.DIS PO PRN (15:43)
[2024-01-08 16:47] LABS: LACTIC ACID 1.3 mmol/L (0.4-2.0)
[2024-01-08] MEDS ORDERED: Sodium Chloride 0.9% 1,000 ML IV STA (16:55)
[2024-01-08] MEDS: Sodium Chloride 0.9% 1,000 ML IV SCH (17:00)
[2024-01-08] MEDS ORDERED: Fluticasone Propionate Nasal Spray 9.9 ML BOTTLE NASBOTH PRN (17:20)
[2024-01-08] MEDS: Potassium Chloride Riders 20 MEQ in Premix Bag 1 BAG IV SCH (17:23)
[2024-01-08] MEDS: Potassium Chloride 20 MEQ Tab.ER PO SCH (17:34)
[2024-01-08] MEDS ORDERED: VANCOmycin 2 GM/400 ML 400 ML IV ONE (18:30)
[2024-01-08 19:40] LABS: CALCIUM 8.8 mg/dL (8.5-10.1); CREATININE 1.7 mg/dL (0.70-1.30); EST CRCL DRUG DOSING (CG) 58.1 mL/min
[2024-01-08 19:41] LABS: ANION GAP 16.8 mmol/L (5-15); POTASSIUM,K 2.8 mmol/L (3.5-5.1)
[2024-01-08] MEDS ORDERED: NS with KCl 40mEq 1,000 ML IV SCH (20:00)
[2024-01-08] MEDS: Cefepime 2 GM Vial IVPUSH SCH (20:47)
[2024-01-08] MEDS: busPIRone 5 MG Tab PO SCH (21:04)
[2024-01-08] MEDS: VANCOmycin 2 GM/400 ML 400 ML IV ONE (21:55)
[2024-01-09] MEDS: Cefepime 2 GM Vial IVPUSH SCH (05:25)
[2024-01-09] MEDS: Sodium Chloride 0.9% 1,000 ML IV SCH (05:25)
[2024-01-09 06:53] LABS: BILIRUBIN,URINE SMALL (NEGATIVE); COLOR,URINE DARK YELLOW (YELLOW); GLUCOSE,URINE NEGATIVE (NEGATIVE); KETONES,URINE 15 mg/dL (NEGATIVE); LEUKOCYTE ESTERASE,URINE NEGATIVE (NEGATIVE); NITRITE,URINE NEGATIVE (NEGATIVE); OCCULT BLOOD,URINE MODERATE (NEGATIVE); PROTEIN,URINE 100 mg/dL (NEGATIVE); UROBILINOGEN,URINE 0.2 EU/dL (0.2)
[2024-01-09 07:07] LABS: BASOPHILS PERCENT AUTO 0.1 % (0.2-1.2); HEMATOCRIT 41.3 % (40.0-52.0); HEMOGLOBIN 14.1 g/dL (14.0-18.0); IMMATURE GRAN ABSOLUTE AUTO 0.04 x10^3/uL (0.00-0.07); LYMPHOCYTES PERCENT AUTO 7.2 % (25.0-50.0); MEAN CORPUSCULAR HEMOGLOBIN 28.6 pg (26.0-32.0); MEAN CORPUSCULAR HGB CONC 34.1 g/dL (32.0-36.0); MEAN CORPUSCULAR VOLUME 83.8 fL (78.0-93.0); MONOCYTES ABSOLUTE AUTO 0.6 x10^3/uL (0.0-0.8); MONOCYTES PERCENT AUTO 4.1 % (2.0-11.0); NEUTROPHILS ABSOLUTE AUTO 11.8 x10^3/uL (1.8-7.7); NEUTROPHILS PERCENT AUTO 88.3 % (50.0-80.0); PLATELET COUNT,PLT 148 x10^3/uL (130-400); RED BLOOD CELL COUNT 4.93 x10^6/uL (4.5-6.0); WHITE BLOOD CELL COUNT,WBC 13.4 x10^3/uL (4.0-10.0)
[2024-01-09 07:22] LABS: APPEARANCE,URINE SLIGHTLY CLOUDY (CLEAR)
[2024-01-09 07:24] LABS: BACTERIA,URINE OCCASIONAL /HPF (NOT SEEN); HYALINE CASTS,URINE OCCASIONAL; MUCUS,URINE FEW /LPF (NOT SEEN); WBC,URINE 0-5 /HPF (NOT SEEN)
[2024-01-09 07:30] LABS: CALCIUM 8.3 mg/dL (8.5-10.1); CREATININE 1.4 mg/dL (0.70-1.30); EST CRCL DRUG DOSING (CG) 70.55 mL/min; POTASSIUM,K 3.5 mmol/L (3.5-5.1)
[2024-01-09 07:33] LABS: ANION GAP 18.5 mmol/L (5-15)
[2024-01-09] MEDS: Cyanocobalamin (Vitamin B12) 250 MCG Tab PO SCH (08:10)
[2024-01-09] MEDS: DULoxetine 30 MG Cap PO SCH (08:11)
[2024-01-09] MEDS: Cranberry 500 MG Cap PO SCH (08:11)
[2024-01-09] MEDS: Cholecalciferol (Vitamin D3) 25 MCG Tab PO SCH (08:11)
[2024-01-09] MEDS: buPROPion 150 MG Tab.ER PO SCH (08:11)
[2024-01-09] MEDS: Hydrochlorothiazide 12.5 MG Cap PO SCH (08:11)
[2024-01-09] MEDS: Lisinopril 20 MG Tab PO SCH (08:12)
[2024-01-09] MEDS ORDERED: HYDROmorphone 0.5 MG/0.5 ML Syringe IVPUSH PRN (09:38)
[2024-01-09] MEDS ORDERED: Naloxone 0.4 MG/ML SDV IVPUSH PRN (09:38)
[2024-01-09] MEDS: Metoprolol Tartrate 25 MG Tab PO SCH (10:10)
[2024-01-09] MEDS: ceFAZolin 2 GM Vial IVPUSH SCH (10:12)
[2024-01-09] MEDS: Enoxaparin 40 MG/0.4 ML Syringe SUBCUT SCH (12:27)
[2024-01-09] MEDS: Sodium Chloride 0.9% 10 ML Syringe FLUSH SCH (18:20)
[2024-01-09] MEDS: Acetaminophen 325 MG Tab PO PRN (19:32)
[2024-01-09] MEDS: Potassium Chloride 20 MEQ Tab.ER PO SCH (20:34)
[2024-01-09] MEDS: VANCOmycin 1.5 GM/300 ML 300 ML IV SCH (21:59)
[2024-01-10 07:57] LABS: BASOPHILS PERCENT AUTO 0.2 % (0.2-1.2); EOSINOPHILS ABSOLUTE AUTO 0.2 x10^3/uL (0.0-0.5); EOSINOPHILS PERCENT AUTO 1.9 % (0.0-4.0); HEMATOCRIT 40.8 % (40.0-52.0); HEMOGLOBIN 13.9 g/dL (14.0-18.0); IMMATURE GRAN ABSOLUTE AUTO 0.07 x10^3/uL (0.00-0.07); LYMPHOCYTES ABSOLUTE AUTO 1.2 x10^3/uL (1.0-4.8); LYMPHOCYTES PERCENT AUTO 12.3 % (25.0-50.0); MEAN CORPUSCULAR HEMOGLOBIN 29.1 pg (26.0-32.0); MEAN CORPUSCULAR HGB CONC 34.1 g/dL (32.0-36.0); MEAN CORPUSCULAR VOLUME 85.4 fL (78.0-93.0); MONOCYTES ABSOLUTE AUTO 0.7 x10^3/uL (0.0-0.8); NEUTROPHILS ABSOLUTE AUTO 7.8 x10^3/uL (1.8-7.7); NEUTROPHILS PERCENT AUTO 77.9 % (50.0-80.0); PLATELET COUNT,PLT 157 x10^3/uL (130-400); RED BLOOD CELL COUNT 4.78 x10^6/uL (4.5-6.0); WHITE BLOOD CELL COUNT,WBC 10.1 x10^3/uL (4.0-10.0)
[2024-01-10 08:07] LABS: CALCIUM 8.4 mg/dL (8.5-10.1); CREATININE 1.2 mg/dL (0.70-1.30); EST CRCL DRUG DOSING (CG) 82.3 mL/min; POTASSIUM,K 3.4 mmol/L (3.5-5.1)
[2024-01-10 08:08] LABS: ANION GAP 15.4 mmol/L (5-15)
[2024-01-10 08:12] LABS: C-REACTIVE PROTEIN 12.48 mg/dL (<=0.50)
[2024-01-10] MEDS: Cholecalciferol (Vitamin D3) 25 MCG Tab PO SCH (09:13)
[2024-01-10] MEDS: Potassium Chloride 20 MEQ Tab.ER PO SCH (09:14)
[2024-01-10] MEDS: Hydrochlorothiazide 12.5 MG Cap PO SCH (09:14)
[2024-01-10] MEDS: Sennosides/Docusate Sodium 50-8.6 MG Tab PO SCH (09:56)
[2024-01-10] MEDS: oxyCODONE 5 MG Tab PO PRN (11:27)
[2024-01-11 08:20] LABS: BASOPHILS PERCENT AUTO 0.2 % (0.2-1.2); EOSINOPHILS ABSOLUTE AUTO 0.5 x10^3/uL (0.0-0.5); EOSINOPHILS PERCENT AUTO 2.9 % (0.0-4.0); HEMATOCRIT 41.6 % (40.0-52.0); IMMATURE GRAN ABSOLUTE AUTO 0.28 x10^3/uL (0.00-0.07); LYMPHOCYTES ABSOLUTE AUTO 2.3 x10^3/uL (1.0-4.8); LYMPHOCYTES PERCENT AUTO 14.7 % (25.0-50.0); MEAN CORPUSCULAR HEMOGLOBIN 28.8 pg (26.0-32.0); MEAN CORPUSCULAR HGB CONC 33.7 g/dL (32.0-36.0); MEAN CORPUSCULAR VOLUME 85.6 fL (78.0-93.0); MONOCYTES ABSOLUTE AUTO 1.2 x10^3/uL (0.0-0.8); MONOCYTES PERCENT AUTO 7.8 % (2.0-11.0); NEUTROPHILS ABSOLUTE AUTO 11.4 x10^3/uL (1.8-7.7); NEUTROPHILS PERCENT AUTO 72.6 % (50.0-80.0); PLATELET COUNT,PLT 209 x10^3/uL (130-400); RED BLOOD CELL COUNT 4.86 x10^6/uL (4.5-6.0); WHITE BLOOD CELL COUNT,WBC 15.7 x10^3/uL (4.0-10.0)
[2024-01-11 08:25] LABS: CALCIUM 8.8 mg/dL (8.5-10.1); CREATININE 1.1 mg/dL (0.70-1.30); EST CRCL DRUG DOSING (CG) 89.79 mL/min; POTASSIUM,K 3.9 mmol/L (3.5-5.1)
[2024-01-11 08:28] LABS: ANION GAP 14.9 mmol/L (5-15)
[2024-01-11] MEDS: Magnesium Oxide 400 MG Tab PO SCH (09:36)
[2024-01-11] MEDS ORDERED: Bisacodyl 10 MG Supp RECTAL PRN (10:03)
[2024-01-11] MEDS: diphenhydrAMINE 25 MG Cap PO PRN (10:52)
[2024-01-12 06:26] VITALS: BP 125/59; PULSE 92
[2024-01-12 07:11] LABS: HEMATOCRIT 41.7 % (40.0-52.0); HEMOGLOBIN 13.6 g/dL (14.0-18.0); MEAN CORPUSCULAR HEMOGLOBIN 28.2 pg (26.0-32.0); MEAN CORPUSCULAR HGB CONC 32.6 g/dL (32.0-36.0); MEAN CORPUSCULAR VOLUME 86.5 fL (78.0-93.0); PLATELET COUNT,PLT 233 x10^3/uL (130-400); RED BLOOD CELL COUNT 4.82 x10^6/uL (4.5-6.0); WHITE BLOOD CELL COUNT,WBC 15.2 x10^3/uL (4.0-10.0)
[2024-01-12 07:30] LABS: CALCIUM 8.6 mg/dL (8.5-10.1); CREATININE 1.1 mg/dL (0.70-1.30); EST CRCL DRUG DOSING (CG) 89.79 mL/min; POTASSIUM,K 3.8 mmol/L (3.5-5.1)
[2024-01-12 07:38] LABS: ANION GAP 16.8 mmol/L (5-15)
[2024-01-12 07:50] LABS: BAND PERCENT MAN 4 % (0-6); EOSINOPHILS ABSOLUTE MAN 0.6 x10^3/uL (0.0-0.5); EOSINOPHILS PERCENT MAN 4 % (0-4); LYMPHOCYTES ABSOLUTE MAN 2.9 x10^3/uL (1.0-4.8); LYMPHOCYTES PERCENT MAN 19 % (25-50); MONOCYTES ABSOLUTE MAN 0.6 x10^3/uL (0.0-0.8); MONOCYTES PERCENT MAN 4 % (2-11); NEUTROPHILS ABSOLUTE MAN 11.1 x10^3/uL (1.8-7.7); SEG NEUTROPHILS PERCENT MAN 69 % (50-80)
[2024-01-12 07:53] LABS: GIANT PLATELETS FEW; PLATELET COUNT ESTIMATE ADEQUATE
[2024-01-12] MEDS: Ergocalciferol (Vitamin D2) 1.25 MG Cap PO SCH (08:37)
== END 2024-01-12 14:22 | disposition home or self-care (01) | DRG 872 ==
LOC: VM.MS 15:19
PROVIDERS: ADMIT Physician Assistant; ATTEND Internal Medicine
DX: A41.9 Sepsis, unspecified organism (principal); L03.115 Cellulitis of right lower limb; Z68.42 Body mass index [BMI] 45.0-49.9, adult; E87.1 Hypo-osmolality and hyponatremia; N17.9 Acute kidney failure, unspecified; R65.20 Severe sepsis without septic shock; I10 Essential (primary) hypertension; I25.10 Atherosclerotic heart disease of native coronary artery without angina pectoris; E66.9 Obesity, unspecified; G47.33 Obstructive sleep apnea (adult) (pediatric); E55.9 Vitamin D deficiency, unspecified; H91.90 Unspecified hearing loss, unspecified ear; F41.9 Anxiety disorder, unspecified; F32.A Depression, unspecified; D50.8 Other iron deficiency anemias; E66.01 Morbid (severe) obesity due to excess calories; F41.1 Generalized anxiety disorder; F32.9 Major depressive disorder, single episode, unspecified; E87.6 Hypokalemia; R21 Rash and other nonspecific skin eruption; E83.42 Hypomagnesemia; I89.0 Lymphedema, not elsewhere classified; K59.00 Constipation, unspecified; Z98.84 Bariatric surgery status; Z91.040 Latex allergy status; Z88.8 Allergy status to other drugs, medicaments and biological substances; Z79.899 Other long term (current) drug therapy; Z79.2 Long term (current) use of antibiotics; Z98.890 Other specified postprocedural states
CPT/HCPCS: 36415; 71046; 80048; 80202; 81001; 82550; 83605; 83735; 83880; 85025; 86060; 86140; 87040; 97110-GP; 97116-GP; 97162-GP; A9270-GY; J0690; J0692; J1650; J3370; J3480; J3490; J7030